=== PATIENT | female | born 1955 | race Native Hawaiian/Other Pacific Islander ===

== ENCOUNTER 2017-03-04 08:05 | Outpatient (CLI) | payer OTHER | END 2017-03-04 19:29 | disposition home or self-care (01) | LOC: MAMMO 08:05 | DX: Z12.31 Encounter for screening mammogram for malignant neoplasm of breast (principal); R92.8 Other abnormal and inconclusive findings on diagnostic imaging of breast | CPT/HCPCS: G0202-TC; G0206-TC ==

== ENCOUNTER 2017-04-11 07:48 | Day surgery (SDC) | payer OTHER | END 2017-04-11 10:00 | disposition home or self-care (01) | LOC: OR 07:48 | PROC: 0DJD8ZZ Inspection of Lower Intestinal Tract, Via Natural or Artificial Opening Endoscopic (ICD-10-PCS; principal; 2017-04-11) | DX: K57.30 Diverticulosis of large intestine without perforation or abscess without bleeding (principal); Z12.11 Encounter for screening for malignant neoplasm of colon; Z80.3 Family history of malignant neoplasm of breast | CPT/HCPCS: J2001; J2250; J2704; J3010 ==